=== PATIENT | female | born 1995 | race Hispanic/Latino ===

== ENCOUNTER 2016-08-27 20:50 | Outpatient (CLI) | payer OTHER ==
[2016-08-27 21:21] VITALS: BP 98/54
[2016-08-27 21:43] LABS: Bacteria,Urine 1+ /HPF (Negative); Bilirubin,Urine NEG (Negative); Blood,Urine NEG (Negative); Ketones,Urine NEG (Negative); Leukocyte Esterase,Urine NEG (Negative); Mucus,Urine 2+ /HPF; Nitrite,Urine NEG (Negative); Protein,Urine <15 mg/dL mg/dL (Negative); Urobilinogen,Urine < 2.0 mg/dL (<2.0)
[2016-08-27] MEDS ORDERED: LACTATED RINGERS 500 ML IV ONE (22:00)
[2016-08-27] MEDS ORDERED: TYLENOL PO ONE (22:22)
== END 2016-08-27 22:15 | disposition home or self-care (01) ==
LOC: TRG 20:50
PROVIDERS: ATTEND Obstetrics & Gynecology
DX: O26.893 Other specified pregnancy related conditions, third trimester (principal); R10.9 Unspecified abdominal pain; N94.89 Other specified conditions associated with female genital organs and menstrual cycle; Z3A.31 31 weeks gestation of pregnancy
CPT/HCPCS: 81001

== ENCOUNTER 2016-10-01 21:56 | Outpatient (CLI) | payer OTHER ==
[2016-10-01 22:15] VITALS: BP 109/61
== END 2016-10-01 23:03 | disposition home or self-care (01) ==
LOC: TRG 21:56
PROVIDERS: ATTEND Obstetrics & Gynecology
DX: O47.03 False labor before 37 completed weeks of gestation, third trimester (principal); Z3A.36 36 weeks gestation of pregnancy
CPT/HCPCS: 59025

== ENCOUNTER 2016-10-05 19:55 | Inpatient (IN) | payer OTHER ==
[2016-10-05] MEDS ORDERED: BICITRA PO ONE (20:04)
[2016-10-05] MEDS ORDERED: REGLAN IV ONE (20:04)
[2016-10-05] MEDS ORDERED: PEPCID IV ONE (20:04)
--- NOTE | 2016-10-05 20:14 | History and Physical Report ---
History of Present Illness Date of examination: 10/05/16 Date of admission: 10/05/16 19:55 Chief complaint: sent from clinic for delivery History of present illness: Pt is 20 year old female JAISON 10/30/16 at 36w3d who presents from [facility] visit today for delivery secondary to Oligohydramnios with Homar 5 cm. She denies contractions or leakage of fluid. She has had care at [facility] since transfer into care at 30 weeks complicated by glucose intolerance with normal 3 hr GTT, first and third trimester bleeding followed by [facility], and associated rash on upper abdomen. She does not desire future fertility. She is GBS unknown. Past History Past Medical History: no pertinent history Past Surgical History: section Family/Genetic History: diabetes, heart disease, hypertension Social history: no significant social history - Obstetrical History Expected Date of Delivery: 10/30/16 Actual Gestation: 36 Week(s) 3 Day(s) : 3 Para: 2 Hx # Term Pregnancies: 2 Number of Pregnancies: 0 Spontaneous Abortions: 0 Induced : 0 Number of Living Children: 2 Medications and Allergies Allergies Allergy/AdvReac Type Severity Reaction Status Date / Time No Known Allergies Allergy Verified 08/27/16 20:53 Home Medications Medication Instructions Recorded Confirmed Last Taken Type Pnv95/Ferrous Fumarate/FA 1 tab PO DAILY 08/27/16 08/27/16 08/27/16 11:00 History [ Caplet] 1 Active Meds: Active Medications Citric Acid/Sodium Citrate (Bicitra) 30 ml PO ONCE ONE Stop: 10/05/16 20:05 Famotidine (Pepcid) 20 mg IV ONCE ONE Stop: 10/05/16 20:05 Cefazolin Sodium (Ancef/Sterile Water 2 Gm/20 Ml) 2 gm in 20 mls @ 80 mls/hr IV PREOP NR PRN Reason: Protocol Lactated Ringer's (Lactated Ringers) 1,000 mls @ 2,250 mls/hr IV PREOP TONYA Stop: 10/06/16 21:27 Oxytocin/Sodium Chloride (Pitocin/Ns 20 Unit/1000ml Drip) 20 units in 1,000 mls @ 0 mls/hr IV TITR TONYA PRN Reason: As Directed Metoclopramide HCl (Reglan) 10 mg IV ONCE ONE Stop: 10/05/16 20:05 Review of Systems All systems: negative - Physical Exam Breasts: Positive: deferred Cardiovascular: Regular rate Abdomen: Positive: soft (gravid) Uterus: Positive: enlarged (gravid ) Extremities: Positive: normal - Obstetrical FHR: auscultation normal Uterine Contraction Monitor Mode: External Uterine Contraction Pattern: Irregular Uterine Tone Measurement Phase: Resting Results All other labs normal. Assessment and Plan A: IUP at 36w3d Oligohydramnios Previous x 2 Undesired Fertility Glucose Intolerance P: Admit to labor and delivery, and proceed with repeat section, bilateral tubal ligation and other indicated procedures.
[2016-10-05] MEDS: LACTATED RINGERS 1,000 ML IV SCH ×2 (20:20→21:12)
[2016-10-05 20:41] LABS: Hematocrit 37.1 % (30.3-42.9); Hemoglobin 12.2 gm/dl (10.1-14.3); Mean Corpuscular HGB Conc 33 % (30-34); Mean Corpuscular Hemoglobin 29 pg (28-32); Mean Corpuscular Volume 89 fl (79-97); Platelet Count 251 K/mm3 (140-440); Red Blood Count 4.16 M/mm3 (3.65-5.03); Red Cell Distribution Width 13.6 % (13.2-15.2); White Blood Count 18.2 K/mm3 (4.5-11.0)
[2016-10-05] MEDS ORDERED: ANCEF/STERILE WATER 2 GM/20 ML 2 GM/20 ML SYRINGE IV NR (21:00)
[2016-10-05 21:17] LABS: HIV-1 Antigen p24 Non React (Non React); HIVR-1/2 Ab Non React (Non React)
[2016-10-05] MEDS ORDERED: MORPHINE ONE (21:48)
[2016-10-05] MEDS ORDERED: WATER FOR IRRIG STERILE IR ONE (22:00)
[2016-10-05] MEDS ORDERED: NACL 0.9% IR ONE (22:00)
[2016-10-05 22:07] LABS: Blastocytes % (Manual) 0 %
[2016-10-05 22:08] LABS: Basophils % (Manual) 0 % (0.0-1.8); Eosinophils % (Manual) 0 % (0.0-4.3)
[2016-10-05 22:09] LABS: Diff Status Complete; Large Platelets 1+; Platelet Estimate Consistent w Auto; RBC Morphology Normal
[2016-10-05] MEDS: PITOCin/NS 20 UNIT/1000ML DRIP 20 UNITS/1,000 ML BAG IV SCH (22:32)
[2016-10-05] MEDS ORDERED: TORADOL ONE (22:37)
[2016-10-05] MEDS ORDERED: VERSED ONE (23:04)
--- NOTE | 2016-10-05 23:44 | Procedure Note ---
OB Delivery Note - Delivery Date of Delivery: 10/05/16 Surgeon: LUC AMANDA Estimated blood loss: other (800 mL) - Section Preop diagnosis: repeat , desires sterilization Postop diagnosis: same section procedure: section, repeat low transverse, other ( bilateral salpingectomy ) Complications: none Narrative: Please see operative report. - A at 1 minute: 8 at 5 minutes: 9 Infant Gender: Female (2915g (6lb 7 oz))
--- NOTE | 2016-10-05 23:52 | Operative Report ---
Operative Report Operative Report: Date of procedure: October 05, 2016 Preoperative diagnosis: 1) IUP at 36w3d 2) Oligohydramnios 3) Previous x 2 4) Undesired Fertility Postoperative diagnosis: Same Procedure: 1) Repeat low transverse section 2) Bilateral salpingectomy Surgeon: Kelsea Gan M.D. Anesthesia: Spinal Findings: 1) Viable female , Apgars 8 and 9, weight 2915 g, (6 lb 7 oz) 2) Normal-appearing uterus ovaries and tubes Estimated blood loss: 800 mL IV fluids: 1400 mL Urine output: 75 mL, clear at the end of the procedure Drains: Tate to gravity Specimens: Placenta, bilateral tubes to pathology Complications:None. Counts correct x 3 Disposition: Stable to PACU Indication for procedure: Pt is 20 year old at 36w3d with oligohydramnios and previous section x 2 as well as undesired fertility. The decision was made to proceed with repeat section with salpingectomy. Operation in detail: After the risks, benefits, alternatives and complications were explained to the patient she gave informed consent for the procedure. She was subsequently taken to the operating room where spinal anesthesia was noted to be adequate. She was subsequently placed in the dorsal supine position with leftward tilt and prepped and draped in a normal sterile fashion. heart tones were noted to be in the 155s prior to incision. A timeout was performed. A Pfannenstiel skin incision was made with the knife and carried down to the layer of the fascia with the Bovie. The fascia was incised in the midline and the fascial incision was extended bilaterally with the Bovie. Attention was then turned to the superior aspect of the incision which was grasped with two Kochers, tented up, and dissected off the rectus muscles. Attention was then turned to the inferior aspect of the incision which was grasped with two Kochers , tented up and dissected off the rectus muscles. The rectus muscles were then in the midline. The peritoneum was then entered bluntly. The peritoneal incision was extended with good visualization of the bladder. The peritoneal incision was then stretched. An Irvin self-retaining retractor was placed for visualization. The bladder blade was placed. The vesicouterine peritoneum was grasped with smooth pickups and incised with Metzenbaum scissors. Metzenbaum scissors were used to extend the incision bilaterally. The bladder flap was then created digitally and the bladder blade was replaced. A transverse incision was made in the lower uterine segment with a knife and extended bilaterally with the bandage scissors. The head was delivered without difficulty followed by shoulders and body. was bulb suctioned at delivery. The cord was clamped and cut and the was handed to NICU staff in attendance. Cord blood was collected. The placenta was then delivered manually. The uterus was then exteriorized and cleared of all clots and debris. The hysterotomy was then reapproximated with 0 Vicryl in a running locked fashion. A second layer of the same suture was used in imbricating fashion. Two figure of eights of 0 Vicryl were used to obtain hemostasis. Attention was then turned to the salpingectomy. The right tube was identified and followed to to the fimbriae. The tube was then grasped with two Babcocks and excised using a LigaSure Impact. Attention was then turned to the left tube which in a similar fashion was followed down to the fimbriae, grasped with two Alana, and excised using a LigaSure Impact. Both tubes were then sent to pathology. Hemostasis was noted. The uterus was then returned to the peritoneal cavity. All instruments were removed from the abdominal cavity. The gutters were irrigated and cleared of all clots and debris. The hysterotomy was again inspected and noted to be hemostatic. Surgicel was then placed over the hysterotomy. The rectus muscles and peritoneum were then reapproximated with 2-0 Vicryl in an interrupted fashion. The fascia was reapproximated with 0 Vicryl in a running fashion. The skin was closed with delio. The incision was then covered with steri strips and a pressure dressing. The procedure was then ended. The patient tolerated the procedure well and was taken to the PACU in stable condition. All instrument, lap, and needle counts were correct 3.
[2016-10-06] MEDS ORDERED: DILAUDID IV ONE (00:04)
[2016-10-06] MEDS: PITOCin/NS 20 UNIT/1000ML DRIP 20 UNITS/1,000 ML BAG IV SCH (00:21)
[2016-10-06] MEDS ORDERED: PHENERGAN PR PRN (00:40)
[2016-10-06] MEDS ORDERED: DILAUDID IV PRN ×2 (00:40)
[2016-10-06] MEDS ORDERED: NARCAN 0.4 MG/1 ML IV PRN ×2 (00:40→01:04)
[2016-10-06] MEDS ORDERED: PHENERGAN PO PRN (00:40)
[2016-10-06] MEDS ORDERED: ZOFRAN IV PRN ×2 (00:40→01:04)
--- NOTE | 2016-10-06 00:40 | Post Anesthesia Evaluation ---
- Post Anesthesia Evaluation Patient Participated: Yes Airway Patent: Yes Stable Respiratory Function: Yes Nausea/Vomiting: No Temp > 96.8F: Yes Pain Manageable: Yes Adequeate Hydration: Yes Anesthesia Complications: No Block Receding Appropriately: Yes
--- NOTE | 2016-10-06 00:40 | Anesthesia Consultation ---
Anesthesia Consult and Med Hx Date of service: 10/05/16 - Airway Anesthetic Teeth Evaluation: Good ROM Head & Neck: Adequate Mental/Hyoid Distance: Adequate Mallampati Class: Class II Intubation Access Assessment: Good - Pulmonary Exam CTA: Yes - Cardiac Exam Cardiac Exam: No Murmur - Pre-Operative Health Status ASA Pre-Surgery Classification: ASA2 Proposed Anesthetic Plan: Epidural, Spinal - Pulmonary Hx Asthma: No COPD: No Hx Pneumonia: No - Cardiovascular System Hx Hypertension: No - Central Nervous System Hx Seizures: No Hx Psychiatric Problems: No - Endocrine Hx Renal Disease: No Hx End Stage Renal Disease: No Hx Hypothyroidism: No Hx Hyperthyroidism: No - Hematic Hx Anemia: No Hx Sickle Cell Disease: No - Other Systems Hx Alcohol Use: No
[2016-10-06] MEDS ORDERED: SODIUM CHLORIDE FLUSH SYRINGE 10 ML IV PRN (01:00)
[2016-10-06] MEDS ORDERED: fentaNYL-BUPIV 2 MCG/ML-0.125% 200 MCG/100 ML BAG EPIDURAL SCH (01:00)
[2016-10-06] MEDS ORDERED: LANSINOH TP PRN (01:04)
[2016-10-06] MEDS ORDERED: SODIUM CHLORIDE FLUSH SYRINGE 10 ML IV NR (01:04)
[2016-10-06] MEDS ORDERED: MORPHINE IV PRN ×2 (01:04)
[2016-10-06] MEDS ORDERED: TUCKS PAD TP PRN (01:04)
[2016-10-06] MEDS ORDERED: MYLICON PO PRN (01:04)
[2016-10-06] MEDS ORDERED: PITOCin/NS 20 UNIT/1000ML DRIP 20 UNITS/1,000 ML BAG IV SCH (01:04)
[2016-10-06] MEDS: D5LR 1,000 ML IV SCH ×2 (01:25→08:46)
[2016-10-06] MEDS: TORADOL IV PRN ×2 (01:25→08:29)
--- NOTE | 2016-10-06 08:28 | Progress Note ---
Assessment and Plan O: VSS AF PP H/H: Pending A: Stable POD #1 Permanent Contraceptor P: Routine PP orders Subjective - Subjective Date of service: 10/06/16 Patient reports: appetite normal, pain well controlled, ambulating normally, no voiding normally (Tate present, patent), no flatus, no bowel movement : doing well Objective - Vital Signs Latest vital signs: Vital Signs Temp Pulse Pulse Resp BP BP Pulse Ox 10/06/16 05:05 98.6 F 68 18 108/61 10/06/16 01:00 98.1 F 83 18 119/70 10/06/16 00:29 97.7 F 10/06/16 00:20 71 10 L 112/64 99 10/06/16 00:15 75 14 111/65 99 10/06/16 00:10 73 14 115/70 99 10/06/16 00:05 78 15 115/70 99 10/06/16 00:00 73 10 L 108/63 100 10/05/16 23:55 70 13 108/63 98 10/05/16 23:50 78 14 104/66 100 10/05/16 23:45 76 10 L 118/72 99 10/05/16 23:40 74 15 116/63 97 10/05/16 23:35 78 16 106/62 99 10/05/16 23:30 72 14 106/57 99 10/05/16 23:25 97.8 F 79 16 110/67 99 10/05/16 23:21 106/71 10/05/16 20:50 96 H 112/62 10/05/16 20:43 98.0 F 18 Intake and Output 10/05/16 10/06/16 10/06/16 22:59 06:59 14:59 Intake Total 1400 2750 Output Total 325 Balance 1400 2425 Intake: IV 1400 2750 D5lr 1,000 ml @ 125 mls/ 750 hr IV DIRECT TONYA Rx#: [id number] Lactated Ringers 1,000 ml 1000 @ 2250 mls/hr IV PREOP TONYA Rx#:[id number] PITOCin/NS 20 UNIT/1000ML 1000 DRIP 20 units In 1,000 ml @ As Directed IV TITR TONYA Rx#:[id number] Output: Urine 325 Indwelling Catheter 200 Uretheral (Tate) 50 Other: Total, Output Amount 200 Weight 86.636 kg Estimated Blood Loss 800 - Exam Breasts: Present: deferred Cardiovascular: Present: Regular rate Lungs: Present: Normal air movement Abdomen: Present: normal appearance, soft, tenderness (postop tenderness). Absent: distention Uterus: Present: normal, firm, fundal height below umbilicus (2 below U, ML). Absent: bogginess Extremities: Present: other (SCD's present, functioning). Absent: edema Incision: Present: normal, dry, intact, dressed - Labs Labs: Abnormal lab results 10/05/16 Range/Units 20:20 WBC 18.2 H (4.5-11.0) K/mm3 Seg Neuts % (Manual) 84.0 H (40.0-70.0) % Lymphocytes % (Manual) 13.0 L (13.4-35.0) % Seg Neutrophils # Man 15.3 H (1.8-7.7) K/mm3
[2016-10-06] MEDS: PRENATAL VITAMIN PO SCH (10:20)
[2016-10-06 12:00] LABS: Hematocrit 32.9 % (30.3-42.9); Hemoglobin 10.9 gm/dl (10.1-14.3)
[2016-10-06] MEDS: FEOSOL PO SCH ×2 (12:14→21:58)
[2016-10-06] MEDS: PERCOCET 5/325 PO PRN ×2 (13:48→18:14)
--- NOTE | 2016-10-06 14:45 | Progress Note ---
Subjective Date of service: 10/06/16 Interval history: 1st POD after Patient is in the bed, relatively comfortable. Pain is well controlled with pain meds. Ambulated well. No residual neurological deficit. No pruritus. No anesthesia complications Objective - Constitutional Vitals: Vital Signs - 12hr 10/06/16 10/06/16 10/06/16 05:05 08:50 12:58 Temperature 98.6 F 97.7 F 97.8 F Pulse Rate [ 68 64 65 From Monitor] Respiratory 18 18 18 Rate Blood Pressure 108/61 101/55 104/58 [Right Arm] - Labs CBC & Chem 7: 10/06/16 11:28 Labs: Abnormal lab results 10/05/16 Range/Units 20:20 WBC 18.2 H (4.5-11.0) K/mm3 Seg Neuts % (Manual) 84.0 H (40.0-70.0) % Lymphocytes % (Manual) 13.0 L (13.4-35.0) % Seg Neutrophils # Man 15.3 H (1.8-7.7) K/mm3
[2016-10-06] MEDS ORDERED: M-M-R II VACCINE SUB-Q ONE (23:54)
[2016-10-07] MEDS: TORADOL IV PRN (01:00)
[2016-10-07] MEDS ORDERED: BOOSTRIX IM ONE (06:00)
[2016-10-07] MEDS: PERCOCET 5/325 PO PRN (08:44)
[2016-10-07] MEDS: FEOSOL PO SCH ×2 (10:00→21:18)
[2016-10-07] MEDS: PRENATAL VITAMIN PO SCH (10:23)
--- NOTE | 2016-10-07 10:57 | Progress Note ---
Assessment and Plan A/P POD#2 repeat c/s and bilateral salpingectomy doing well ambulating well tolerating diet flatus decreased bleeding A+ no rhogam indicated h/h 12.2---10.9 female bonding with baby VSS meets d/c paramaters d/c home f/u in 2 weeks for incision check Subjective - Subjective Date of service: 10/07/16 Principal diagnosis: repeat c/s and bilateral salpingectomy Patient reports: appetite normal, voiding normally, pain well controlled, flatus , ambulating normally [place]: doing well Objective - Vital Signs Latest vital signs: Vital Signs Temp Pulse Resp BP 10/07/16 09:10 97.9 F 72 18 112/71 10/07/16 01:00 20 10/07/16 00:00 98.2 F 81 18 106/65 10/06/16 21:58 18 10/06/16 18:15 97.6 F 74 18 107/61 10/06/16 12:58 97.8 F 65 18 104/58 Intake and Output 10/06/16 10/07/16 10/07/16 22:59 06:59 14:59 Intake Total 720 120 Output Total 1800 Balance -1080 120 Intake: Oral 720 120 Output: Urine 1800 Void 1800 Other: Total, Intake Amount 240 120 Total, Output Amount 900 # Voids Void 1 1 - Exam Breasts: Present: normal Cardiovascular: Present: Regular rate, Normal S1, Normal S2 Lungs: Present: Clear to auscultation, Normal air movement Abdomen: Present: normal appearance, soft, normal bowel sounds. Absent: distention, tenderness, guarding Vulva: both: normal Uterus: Present: normal, firm, fundal height below umbilicus (3cm below). Absent: bogginess, tenderness Extremities: Present: normal Deep Tendon Reflex Grade: Normal +2 Incision: Present: normal, dry, intact
--- NOTE | 2016-10-07 11:02 | Discharge Summary ---
Providers - Providers Date of Admission: 10/05/16 19:55 Date of discharge: 10/07/16 Attending physician: LUC AMANDA 10/06/16 01:04 Consult to [facility] [CONS] Routine Reason For Exam: Primary care physician: LUC AMANDA Hospitalization Reason for admission: section Delivery: Procedure: repeat low transverse Episiotomy: none Laceration: none Incision: normal, dry, intact Other procedures: tubal ligation complications: none Discharge diagnosis: IUP at term delivered baby: female Condition at discharge: Good Disposition: DISCHARGED TO HOME OR SELFCARE Plan - Provider Discharge Summary Activity: routine, no sex for 6 weeks Diet: routine Instructions: routine Additional instructions: [] Smoking cessation referral if applicable(refer to patient education folder for contact #) [] Refer to [facility] Booklet Call your doctor immediately for: * Fever > 100.5 * Heavy vaginal bleeding ( >1 pad per hour) * Severe persistent headache * Shortness of breath * Reddened, hot, painful area to leg or breast * Drainage or odor from incision. * Keep incision clean and dry at all times and follow doctor's instructions regarding bathing/showering - Follow up plan Follow up: LUC AMANDA MD [Primary Care Provider] - 14 Days
[2016-10-07] MEDS: NORCO 5/325 PO PRN ×2 (15:24→19:27)
[2016-10-08] MEDS: NORCO 5/325 PO PRN ×3 (00:21→11:32)
[2016-10-08] MEDS ORDERED: BOOSTRIX IM ONE (06:00)
[2016-10-08] MEDS: FEOSOL PO SCH (11:04)
[2016-10-08] MEDS: PRENATAL VITAMIN PO SCH (11:04)
[2016-10-08] MEDS ORDERED: NORCO 5/325 ONE (11:26)
[2016-10-08 14:47] VITALS: BP 100/62
== END 2016-10-08 13:20 | disposition home or self-care (01) | DRG 765 ==
LOC: APU 19:55 → OB 10-06 01:04
PROVIDERS: ADMIT Obstetrics & Gynecology; ATTEND Obstetrics & Gynecology
PROC: 10D00Z1 Extraction of Products of Conception, Low, Open Approach (ICD-10-PCS; principal; 2016-10-05)
PROC: 0UT70ZZ Resection of Bilateral Fallopian Tubes, Open Approach (ICD-10-PCS; 2016-10-05)
DX: O34.211 Maternal care for low transverse scar from previous cesarean delivery (principal); O41.03X0 Oligohydramnios, third trimester, not applicable or unspecified; Z3A.36 36 weeks gestation of pregnancy; Z37.0 Single live birth; Z83.3 Family history of diabetes mellitus; Z82.49 Family history of ischemic heart disease and other diseases of the circulatory system
CPT/HCPCS: 36415; 85007; 85014; 85018; 85025; 86850; 86900; 86901; 87806; 88302; 88307; 90715; 99211; A6250; G0463; J0690; J1170; J1885; J2250; J2270; J2590; J2765; J7121; Q0169

== ENCOUNTER 2016-12-13 21:32 | Emergency (ER) | payer OTHER ==
[2016-12-13 22:31] VITALS: BP 127/88
--- NOTE | 2016-12-13 22:47 | Emergency Department Report ---
ED ENT HPI - General Chief complaint: Dental/Oral Stated complaint: ABSCESS IN MOUTH Time Seen by Provider: 12/13/16 22:38 Source: patient Mode of arrival: Ambulatory Limitations: No Limitations - History of Present Illness Initial comments: She is a 21-year-old female presents to ED with complaints of pain to the left lower jaw for the past few days. Patient reports that there is a cracked molar tooth to the left lower jaw and thinks it is infected. Denies any other symptoms. MD complaint: tooth pain Onset/Timin -: Sudden, days(s) Location: tooth # 1 - Cracked tooth, gum swelling, tenderness Severity: moderate Severity scale (0 -10): 7 Quality: aching, dull Consistency: constant Improves with: none Worsens with: none Associated Symptoms: gum swelling, toothache. denies: fever, cough, pain with swallowing, sore throat, tinnitus, hearing loss - Related Data Home Medications Medication Instructions Recorded Confirmed Last Taken Pnv95/Ferrous Fumarate/FA 1 tab PO DAILY 08/27/16 10/07/16 08/27/16 11:00 [ Caplet] 1 Previous Rx's Medication Instructions Recorded Last Taken Type Ferrous Sulfate [Feosol 325 MG tab] 325 mg PO BID #30 tablet 10/07/16 Unknown Rx Ibuprofen [Motrin] 600 mg PO Q8H PRN #30 tablet 10/07/16 Unknown Rx oxyCODONE /ACETAMINOPHEN [Percocet 1 tab PO Q6HR PRN #30 tablet 10/07/16 Unknown Rx 5/325] HYDROcodone/APAP 5-325 [Edmond 1 - 2 each PO Q6HR PRN #30 tablet 10/08/16 Unknown Rx 5/325] Fluconazole [Diflucan TAB] 150 mg PO ONCE #1 tablet 12/13/16 Unknown Rx Penicillin Vk [Veetids TAB] 500 mg PO QID #40 tablet 12/13/16 Unknown Rx Allergies Allergy/AdvReac Type Severity Reaction Status Date / Time No Known Allergies Allergy Verified 08/27/16 20:53 ED Dental HPI - General Chief complaint: Dental/Oral Stated complaint: ABSCESS IN MOUTH Time Seen by Provider: 12/13/16 22:38 Source: patient Mode of arrival: Ambulatory Limitations: No Limitations - Related Data Home Medications Medication Instructions Recorded Confirmed Last Taken Pnv95/Ferrous Fumarate/FA 1 tab PO DAILY 08/27/16 10/07/16 08/27/16 11:00 [ Caplet] 1 Previous Rx's Medication Instructions Recorded Last Taken Type Ferrous Sulfate [Feosol 325 MG tab] 325 mg PO BID #30 tablet 10/07/16 Unknown Rx Ibuprofen [Motrin] 600 mg PO Q8H PRN #30 tablet 10/07/16 Unknown Rx oxyCODONE /ACETAMINOPHEN [Percocet 1 tab PO Q6HR PRN #30 tablet 10/07/16 Unknown Rx 5/325] HYDROcodone/APAP 5-325 [Edmond 1 - 2 each PO Q6HR PRN #30 tablet 10/08/16 Unknown Rx 5/325] Fluconazole [Diflucan TAB] 150 mg PO ONCE #1 tablet 12/13/16 Unknown Rx Penicillin Vk [Veetids TAB] 500 mg PO QID #40 tablet 12/13/16 Unknown Rx Allergies Allergy/AdvReac Type Severity Reaction Status Date / Time No Known Allergies Allergy Verified 08/27/16 20:53 ED Review of Systems ROS: Stated complaint: ABSCESS IN MOUTH Other details as noted in HPI Constitutional: denies: chills, fever ENT: dental pain. denies: ear pain, throat pain Respiratory: denies: cough, shortness of breath, wheezing Cardiovascular: denies: chest pain, palpitations Musculoskeletal: denies: back pain, joint swelling, arthralgia Skin: denies: rash, lesions Neurological: denies: headache, weakness, paresthesias Psychiatric: denies: anxiety, depression ED Past Medical Hx - Past Medical History Hx Hypertension: No Hx Congestive Heart Failure: No Hx Diabetes: No Hx Deep Vein Thrombosis: No Hx Renal Disease: No Hx Sickle Cell Disease: No Hx Seizures: No Hx Asthma: No Hx COPD: No Hx HIV: No - Surgical History Past Surgical History?: Yes Hx Cholecystectomy: Yes Additional Surgical History: c- section x 3 - Social History Smoking Status: Never Smoker Substance Use Type: None - Medications Home Medications: Home Medications Medication Instructions Recorded Confirmed Last Taken Type Pnv95/Ferrous Fumarate/FA 1 tab PO DAILY 08/27/16 10/07/16 08/27/16 11:00 History [ Caplet] 1 Ferrous Sulfate [Feosol 325 MG tab] 325 mg PO BID #30 tablet 10/07/16 Unknown Rx Ibuprofen [Motrin] 600 mg PO Q8H PRN #30 tablet 10/07/16 Unknown Rx oxyCODONE /ACETAMINOPHEN [Percocet 1 tab PO Q6HR PRN #30 tablet 10/07/16 Unknown Rx 5/325] HYDROcodone/APAP 5-325 [Edmond 1 - 2 each PO Q6HR PRN #30 tablet 10/08/16 Unknown Rx 5/325] Fluconazole [Diflucan TAB] 150 mg PO ONCE #1 tablet 12/13/16 Unknown Rx Penicillin Vk [Veetids TAB] 500 mg PO QID #40 tablet 12/13/16 Unknown Rx ED Physical Exam - General Limitations: No Limitations General appearance: alert, in no apparent distress - Head Head exam: Present: atraumatic, normocephalic - Eye Eye exam: Present: normal appearance - ENT ENT exam: Present: mucous membranes moist - Expanded ENT Exam Expanded Teeth exam: Present: dental caries, fractured tooth #, dental tenderness # 1 - Fractured, Dental Tenderness, Other (Cracked tooth, gingival swelling, dental tenderness noted.) Throat exam: Positive: normal inspection - Neck Neck exam: Present: normal inspection, full ROM - Respiratory Respiratory exam: Present: normal lung sounds bilaterally. Absent: respiratory distress - Cardiovascular Cardiovascular Exam: Present: regular rate, normal rhythm. Absent: systolic murmur, diastolic murmur, rubs, gallop - Neurological Exam Neurological exam: Present: alert, oriented X3 - Psychiatric Psychiatric exam: Present: normal affect, normal mood ED Course Vital Signs 12/13/16 12/13/16 21:36 22:29 Temperature 99.1 F 99.3 F Pulse Rate 95 H 80 Respiratory 18 16 Rate Blood Pressure 131/99 Blood Pressure 127/88 [Right] O2 Sat by Pulse 99 97 Oximetry ED Medical Decision Making - Medical Decision Making Patient is resting comfortably in the ED room. Vital signs within normal range. We'll prescribed penicillin VK and Diflucan to go home with. Advised follow-up with dentist for tooth removal. - Differential Diagnosis dental abscess, cracked tooth, dentalgia, gingivitis. Critical care attestation.: If time is entered above; I have spent that time in minutes in the direct care of this critically ill patient, excluding procedure time. ED Disposition Clinical Impression: Broken or cracked tooth, nontraumatic, Dental infection Disposition: TO HOME OR SELFCARE Is pt being admited?: No Does the pt Need Aspirin: No Condition: Stable Instructions: Toothache (ED), Dental Caries (ED), Dental Abscess (ED) Prescriptions: Fluconazole [Diflucan TAB] 150 mg PO ONCE #1 tablet Penicillin Vk [Veetids TAB] 500 mg PO QID #40 tablet Time of Disposition: 22:52
[2016-12-13] MEDS ORDERED: PERCOCET 5/325 PO ONE (23:21)
== END 2016-12-13 23:45 | disposition home or self-care (01) ==
LOC: ED 21:32
DX: K04.7 Periapical abscess without sinus (principal); K03.81 Cracked tooth
CPT/HCPCS: 99282